=== PATIENT | female | born 1975 | race Caucasian/White ===

== ENCOUNTER 2017-07-02 13:21 | Emergency (ER) | payer OTHER, MEDICAID ==
[~2017-07-02] VITALS: Ht 175.3 cm; Wt 86.2 kg
[~2017-07-02 13:21] MED LIST: ALLEGRA30 MG/5 ML; COLACE100 MG; CYCLOBENZAPRINE5 MG PO; FERROUS GLUCON325 M4; HYDROCODONE-AP1 EAC6 PO; IBUPROFEN 800800 M1 PO; MOBIC7.5 MG PO; NAPROSYN500 MG PO; TRAMADOL 50 MG50 MG PO; UNICOMPLEX M TA1 TA1 PO; VIVA CT PRENAT1 EACH
[2017-07-02 14:06] LABS: ABSOLUTE EOSINOPHILS 0.1 thou/uL (0.0-0.7); ABSOLUTE LYMPHOCYTES 2.2 thou/uL (0.8-5.3); ABSOLUTE MONOCYTES 0.4 thou/uL (0.0-1.2); ABSOLUTE NEUTROPHILS 5.2 thou/uL (1.6-8.1); BASOPHILS 0.5 %; EOSINOPHILS 0.9 %; HEMATOCRIT 40.4 % (37.0-47.0); HEMOGLOBIN 13.3 gm/dL (12.0-15.0); LYMPHOCYTES 28.1 %; MCHC 32.8 g/dL (28.0-37.0); MCV 85.1 fL (80.0-100.0); MPV 8.3 fl. (7.2-11.1); NUCLEATED RBCS 0 /100WBC; PLATELET COUNT* 247 thou/uL (150-400); POLYS 65.5 %; RBC 4.74 mil/uL (4.20-5.00); RDW-CV 13.5 % (10.5-14.5); WBC 7.9 thou/uL (4.0-11.0)
[2017-07-02 14:25] LABS: ANION GAP 9 mmol/L (7-16); BUN 13 mg/dL (7-18); CALCIUM 9.3 mg/dL (8.5-10.1); CHLORIDE 102 mmol/L (98-107); CO2 29 mmol/L (21-32); CREATININE 0.8 mg/dL (0.6-1.3); GLUCOSE 175 mg/dL (70-99); POTASSIUM 3.8 mmol/L (3.5-5.1); SODIUM 140 mmol/L (136-145)
[2017-07-02 14:30] LABS: ALBUMIN 3.6 g/dL (3.4-5.0); ALKALINE PHOSPHATASE 82 U/L (46-116); SGOT 14 U/L (15-37); SGPT 18 U/L (30-65); TOTAL BILIRUBIN 0.3 mg/dL (<0.1-1.0); TOTAL PROTEIN 7.6 g/dL (6.4-8.2); TROPONIN-I LEVEL <0.06 ng/mL (<0.06)
[2017-07-02 14:51] VITALS: BP 143/83
--- NOTE | 2017-07-02 16:42 | EKG ---
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1975 Requested By: Nahed Harper Order Number: [id number] MD: Diaz Ng Measurements Intervals [place] Rate: 72 P: 21 ID: 144 QRS: 7 QRSD: 86 T: 26 QT: 428 QTc: 469 Interpretive Statements Sinus rhythm Left ventricular hypertrophy, bivoltage Borderline T abnormalities, anterior leads Compared to ECG 07/15/2016 21:10:12 No significant changes Electronically Signed On 07-02-2017 16:42:37 CDT by Diaz Ng [email or web address] <ELECTRONICALLY SIGNED> By: Diaz Ng MD, [facility] 07/02/17 1642 [id number] Diaz Ng MD, FACC /EPI
== END 2017-07-02 14:52 | disposition home or self-care (01) ==
LOC: M.ERS 13:21
PROVIDERS: Nurse Practitioner Family
DX: J06.9 Acute upper respiratory infection, unspecified (principal); R73.9 Hyperglycemia, unspecified; Z90.89 Acquired absence of other organs; Z98.890 Other specified postprocedural states; Z88.6 Allergy status to analgesic agent; Z88.2 Allergy status to sulfonamides

== ENCOUNTER 2017-09-30 17:59 | Emergency (ER) | payer OTHER, MEDICAID ==
[~2017-09-30] VITALS: Ht 167.6 cm; Wt 77.1 kg
[2017-09-30 18:06] VITALS: BP 141/81
[2017-09-30] MEDS ORDERED: MEDROLDOSEPACK PO (18:37)
== END 2017-09-30 18:47 | disposition home or self-care (01) ==
LOC: M.ERS 17:59
DX: L25.5 Unspecified contact dermatitis due to plants, except food (principal); Z88.1 Allergy status to other antibiotic agents; Z88.6 Allergy status to analgesic agent; Z88.8 Allergy status to other drugs, medicaments and biological substances

== ENCOUNTER 2017-11-11 11:13 | Emergency (ER) | payer OTHER, MEDICAID ==
[~2017-11-11] VITALS: Ht 170.2 cm; Wt 79.4 kg
[~2017-11-11 11:13] MED LIST changes: +MEDROLDOSEPACK PO
[2017-11-11] MEDS ORDERED: PREDNISONE 10 M10 M1 PO (11:42)
[2017-11-11] MEDS ORDERED: ULTRAVATE50 GM TOP (11:42)
[2017-11-11 11:47] VITALS: BP 162/78
== END 2017-11-11 11:48 | disposition home or self-care (01) ==
LOC: M.ERS 11:13
DX: L23.7 Allergic contact dermatitis due to plants, except food (principal); Z98.890 Other specified postprocedural states; Z88.2 Allergy status to sulfonamides; Z88.6 Allergy status to analgesic agent; Z88.8 Allergy status to other drugs, medicaments and biological substances

== ENCOUNTER 2020-06-15 16:53 | Emergency (ER) | payer OTHER ==
[~2020-06-15] VITALS: Ht 170.2 cm; Wt 95.3 kg
[~2020-06-15 16:53] MED LIST changes: +PREDNISONE 10 M10 M1 PO; +ULTRAVATE50 GM TOP
[2020-06-15 17:21] LABS: URINE BILIRUBIN NEGATIVE (Negative); URINE BLOOD NEGATIVE (Negative); URINE CLARITY CLEAR; URINE COLOR YELLOW; URINE GLUCOSE-RANDOM NEGATIVE (Negative); URINE KETONES NEGATIVE (Negative); URINE LEUKOCYTES-REFLEX NEGATIVE (Negative); URINE NITRITE-REFLEX NEGATIVE (Negative); URINE PROTEIN NEGATIVE (Negative); URINE SPECIFIC GRAVITY 1.015 (1.005-1.030); URINE UROBILINOGEN 0.2 E.U./dl (0.2-1.0)
[2020-06-15 17:22] LABS: ABSOLUTE BASOPHILS 0.1 thou/uL (0.0-0.2); ABSOLUTE EOSINOPHILS 0.2 thou/uL (0.0-0.7); ABSOLUTE LYMPHOCYTES 2.8 thou/uL (0.8-5.3); ABSOLUTE MONOCYTES 0.5 thou/uL (0.0-1.2); ABSOLUTE NEUTROPHILS 5.7 thou/uL (1.6-8.1); BASOPHILS 0.6 %; EOSINOPHILS 2.2 %; HEMATOCRIT 41.4 % (37.0-47.0); HEMOGLOBIN 13.5 gm/dL (12.0-15.0); LYMPHOCYTES 29.9 %; MCH 27.8 pg (26.0-34.0); MCHC 32.6 g/dL (28.0-37.0); MCV 85.2 fL (80.0-100.0); MONOCYTES 5.1 %; MPV 7.8 fl. (7.2-11.1); NUCLEATED RBCS 0 /100WBC; PLATELET COUNT* 319 thou/uL (150-400); POLYS 62.2 %; RBC 4.86 mil/uL (4.20-5.00); RDW-CV 13.7 % (10.5-14.5); WBC 9.2 thou/uL (4.0-11.0)
[2020-06-15 17:30] LABS: CALCIUM 9.2 mg/dL (8.5-10.1); CREATININE 0.8 mg/dL (0.6-1.3); POTASSIUM 3.7 mmol/L (3.5-5.1)
[2020-06-15 17:43] LABS: ALBUMIN 3.9 g/dL (3.4-5.0); TOTAL BILIRUBIN 0.3 mg/dL (<0.1-1.0); TOTAL PROTEIN 8.4 g/dL (6.4-8.2)
[2020-06-15 19:02] VITALS: BP 144/85
--- NOTE | 2020-06-16 10:18 | EKG ---
[place] [address] ELECTROCARDIOGRAM REPORT Name: CARLA COLBY Room: 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 : 1975 Requested By: Caleb Ann Order Number: [id number] MD: Diaz Ng Measurements Intervals [place] Rate: 71 P: 44 SD: 158 QRS: 10 QRSD: 94 T: 11 QT: 430 QTc: 468 Interpretive Statements Sinus rhythm Left ventricular hypertrophy, by voltage Baseline wander in lead(s) V1 Compared to ECG 07/02/2017 13:56:27 T-wave abnormality no longer present Electronically Signed On 06-16-2020 10:18:29 CDT by Diaz Ng [email or web address] <ELECTRONICALLY SIGNED> By: Diaz Ng MD, FACC 06/16/20 1018 1716 1716 Diaz Ng MD, [facility] /EPI
== END 2020-06-15 19:04 | disposition home or self-care (01) ==
LOC: M.ERS 16:53
PROVIDERS: Family Medicine
DX: R10.31 Right lower quadrant pain (principal); Z88.6 Allergy status to analgesic agent; Z88.2 Allergy status to sulfonamides; Z88.1 Allergy status to other antibiotic agents; Z88.8 Allergy status to other drugs, medicaments and biological substances; Z98.890 Other specified postprocedural states